=== PATIENT | female | born 1955 | race Caucasian/White ===

== ENCOUNTER → 2018-01-29 | Outpatient (CLI) | payer OTHER ==
[2018-01-29 14:52] LABS: BASO % 0.5 % (0.0-1.0); EOS # 0.2 10^3/uL (0.0-0.50); EOS % 2.4 % (0.0-3.0); HEMATOCRIT 38.9 % (36.0-47.0); HEMOGLOBIN 12.7 g/dl (12.0-15.5); IMMATURE GRANULOCYTE % 0.2 % (0-3.0); LYMPH # 2.9 10^3/uL (1.5-4.5); LYMPH % 43.9 % (24.0-44.0); MEAN CORPUSCULAR HEMOGLOBIN 29.7 pg (27.0-33.0); MEAN CORPUSCULAR HGB CONC 32.6 g/dl (32.0-36.5); MEAN CORPUSCULAR VOLUME 91.1 fl (80.0-96.0); MONO # 0.5 10^3/uL (0.0-0.8); NEUTROPHILS # 3.1 10^3/uL (1.8-7.7); PLATELET COUNT, AUTOMATED 257 10^3/uL (150-450); RED BLOOD COUNT 4.27 10^6/uL (4.00-5.40); WHITE BLOOD COUNT 6.6 10^3/uL (4.0-10.0)
[2018-01-29 15:25] LABS: ALBUMIN 3.8 GM/DL (3.2-5.2)
[2018-01-29 15:25] LABS: FERRITIN 156 NG/ML (8-252); IRON (FE) 88 UG/DL (50-170); PERCENT SATURATION 27.4 % (13.2-45.0); TOTAL IRON BINDING CAPACITY 321 UG/DL (250-450)
== END ==
LOC: M LAB 14:25
DX: Z01.818 Encounter for other preprocedural examination (principal); M16.11 Unilateral primary osteoarthritis, right hip; D63.8 Anemia in other chronic diseases classified elsewhere
CPT/HCPCS: 82040

== ENCOUNTER → 2018-04-08 | Outpatient (REF) | payer MEDICARE, OTHER ==
[2018-04-08 20:13] LABS: CALCIUM LEVEL 10.2 MG/DL (8.8-10.2)
== END ==
LOC: M LABDRWAD 10:17
DX: E83.51 Hypocalcemia (principal)
CPT/HCPCS: 82310

== ENCOUNTER → 2018-04-21 | Outpatient (REF) | payer MEDICARE, OTHER ==
[2018-04-21 17:06] LABS: PTH INTACT 27.5 PG/ML (18.5-88.0)
== END ==
LOC: M LAB REF 15:01
DX: E83.52 Hypercalcemia (principal)
CPT/HCPCS: 83970

== ENCOUNTER → 2018-09-03 | Outpatient (CLI) | payer MEDICARE, OTHER | LOC: M LABDRWAD 13:43 | PROVIDERS: ATTEND Physician Assistant Surgical | DX: T56.891A Toxic effect of other metals, accidental (unintentional), initial encounter (principal) ==

== ENCOUNTER → 2020-03-10 | Outpatient (REF) | payer MEDICARE, OTHER | LOC: M LABDRWAD 12:37 | PROVIDERS: ATTEND Orthopaedic Surgery | DX: Z13.88 Encounter for screening for disorder due to exposure to contaminants (principal); Z96.643 Presence of artificial hip joint, bilateral; M25.552 Pain in left hip; T56.891A Toxic effect of other metals, accidental (unintentional), initial encounter ==

== ENCOUNTER → 2022-03-25 | Outpatient (CLI) | payer MEDICARE, OTHER | LOC: M ADAMS 13:35 | PROVIDERS: ATTEND Physician Assistant Surgical | DX: M25.551 Pain in right hip (principal); M25.552 Pain in left hip; Z96.641 Presence of right artificial hip joint; Z96.642 Presence of left artificial hip joint; T56.891A Toxic effect of other metals, accidental (unintentional), initial encounter ==

== ENCOUNTER 2023-10-03 09:27 | Day surgery (SDC) | payer MEDICARE, OTHER ==
[~2023-10-03] VITALS: Ht 157.5 cm; Wt 66.2 kg
[~2023-10-03 09:27] MED LIST: CENT1TAB PO; OMEG300C PO; VITA40TA PO
[2023-10-03] MEDS ORDERED: propofoL 200 MG/20 ML VIAL As Ordered ONE (09:54)
[2023-10-03] MEDS ORDERED: LIDOCAINE 2% 100MG/5ML SDV (FOR ANES.) As Ordered ONE (09:54)
[2023-10-03] MEDS: NS 1,000 ML IV ONE (10:00)
[2023-10-03 10:47] VITALS: TEMP 97.1
[2023-10-03 11:00] VITALS: BP 101/54; O2SAT 97
== END 2023-10-03 11:39 | disposition home or self-care (01) ==
LOC: M OPP 09:27
PROVIDERS: ATTEND Surgery
DX: Z12.11 Encounter for screening for malignant neoplasm of colon (principal)

== ENCOUNTER → 2023-12-10 | Outpatient (CLI) | payer MEDICARE, OTHER | LOC: M ADAMS 11:28 | PROVIDERS: ATTEND Nurse Practitioner Adult Health | DX: R05.3 Chronic cough (principal) ==

== ENCOUNTER → 2024-06-29 | Outpatient (CLI) | payer MEDICARE, OTHER ==
[~2024-06-29] MED LIST changes: +METHACHOLINE KIT (6 VIAL.NEB PREMIX) INH ONE
== END ==
LOC: M CARPUL 10:15
PROVIDERS: ATTEND Physician Assistant
DX: R05.9 Cough, unspecified (principal)
CPT/HCPCS: 94070; 95070; J7674